=== PATIENT | female | born 1955 | race Caucasian/White ===

== ENCOUNTER → 2016-06-22 | Day surgery (SDC) | payer MEDICARE, OTHER, BC | END | disposition home or self-care (01) | LOC: SDC 06:06 | DX: H26.8 Other specified cataract (principal); E11.9 Type 2 diabetes mellitus without complications; I10 Essential (primary) hypertension; M19.90 Unspecified osteoarthritis, unspecified site; N19 Unspecified kidney failure; J45.909 Unspecified asthma, uncomplicated; I11.0 Hypertensive heart disease with heart failure; I50.9 Heart failure, unspecified; Z79.4 Long term (current) use of insulin; Z79.899 Other long term (current) drug therapy; Z87.01 Personal history of pneumonia (recurrent); Z90.49 Acquired absence of other specified parts of digestive tract | CPT/HCPCS: C1780; J0171; J1100; J1580; J2704; J2765 ==